=== PATIENT | female | born 1965 | race Caucasian/White ===

== ENCOUNTER → 2020-04-13 13:33 | Outpatient (CLI) | payer OTHER, SELFPAY ==
--- NOTE | ~2020-04-13 | MM_ITS ---
EXAMINATION: MM screening [facility] BI w akanksha HISTORY: Screening TECHNIQUE: Craniocaudal and mediolateral oblique 3-D tomosynthesis images were obtained and synthetic 2-D images were generated. CAD analysis was submitted and interpreted. COMPARISON: Comparison to multiple prior studies sequentially, with oldest reviewed study dated 11/04. BREAST PARENCHYMAL COMPOSITION: The breasts are heterogeneously dense, which may obscure small masses . FINDINGS: Benign-appearing bilateral breast masses and architectural distortion within the right reyes st are stable. There is no evidence of suspicious mass, calcification, or architectural distortion to suggest malignancy in either breast. There has been no suspicious interval change. IMPRESSION: 1. No mammographic evidence of malignancy. 2. Recommend routine screening mammography in one year. BI-RADS Category 2: Benign finding(s).. Reviewed, dictated and finalized at location A. D [employer]
== END ==
PROVIDERS: PCP Family Medicine; Visit Provider Family Medicine
DX: Z12.31 Encounter for screening mammogram for malignant neoplasm of breast (principal)
CPT/HCPCS: 77063; 77067

== ENCOUNTER 2023-06-22 11:38 | Outpatient (CLI) | payer BC, SELFPAY ==
--- NOTE | ~2023-06-22 | XR_ITS ---
EXAMINATION: [id number] DATE: 06/22/2023 12:16 INDICATION: Left foot stress fracture with pain in the region of the second and third metatarsals TECHNIQUE: Weightbearing dorsal plantar, two oblique and lateral views of the left foot were obtaine d. COMPARISON: None. FINDINGS: Mild pes planus with flattening of the longitudinal arch. Alignment is otherwise normal. No fractures or periosteal reaction to suggest a lower grade stress injury. Mild polyarticular osteoarthritis at the first metatarsophalangeal and a few tarsometatarsal and interphalangeal joints. No erosions to monson ggest inflammatory arthritis. Small Achilles calcaneal spur. IMPRESSION: 1. 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 No acute osseous abnormality. Reviewed, dictated and finalized at location A. IMPRESSION: 1. 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 No acute oss eous abnormality.
== END 2023-06-22 11:39 ==
LOC: MICIMG 11:40
PROVIDERS: PCP Podiatrist Foot & Ankle Surgery; Visit Provider Podiatrist Foot & Ankle Surgery
DX: S92.302A Fracture of unspecified metatarsal bone(s), left foot, initial encounter for closed fracture (principal); X58.XXXA Exposure to other specified factors, initial encounter; M19.072 Primary osteoarthritis, left ankle and foot
CPT/HCPCS: 73630

== ENCOUNTER 2023-08-01 13:36 | Outpatient (CLI) | payer BC, SELFPAY ==
--- NOTE | ~2023-08-01 | MR_ITS ---
EXAMINATION: MR foot LT wo/w con DATE: 08/01/2023 14:25 INDICATION: Neuroma at the left foot presenting with pain and lump at the left forefoot TECHNIQUE: Magnetic resonance imaging (MRI) of the left fore/mid foot was performed without and with 20 mL Multihance intravenous contrast. Sequences included axial, sagittal and coronal T1-weighted FSE , axial T2-weighted FS FSE, axial T1-weighted FS FSE, sagittal fluid sensitive FSE STIR, coronal PD-w eighted FS FSE and postcontrast axial, sagittal and coronal T1-weighted FS FSE. COMPARISON: Left foot radiographs dated 06/22/2023 FINDINGS: There is mild medial deviation of the second toe relative to the axis of the remaining toes. Bone ali gnment is otherwise normal. There is normal marrow signal throughout with no fracture or pathologic m arrow replacing process. Mild polyarticular osteoarthritis at multiple tarsal metatarsal, metatarsoph alangeal and interphalangeal joints. There is a tear along the ulnar side of the plantar plate at the base of the second proximal phalanx. There is thickening and small amount of ossification of lateral sided collateral ligament complex of the second metatarsophalangeal joint consistent with chronic te ar and likely accounting for the medial deviation of the second toe. The Lisfranc ligament complex an d remaining collateral ligament complexes at the metatarsophalangeal and interphalangeal joints are n ormal. There is mild edema of the intrinsic musculature between the second and third metatarsals. No abnormally enhancing masses. Specifically no Azevedo's neuroma identified. Physiologic amount fluid in the joint space with no bursitis or tenosynovitis. The visual is portions of the flexor and extensor tendons are normal. IMPRESSION: 1. 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 Reviewed, dictated and finalized at location A. IMPRESSION: 1. 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
== END 2023-08-01 13:37 ==
LOC: MICIMG 13:36
PROVIDERS: PCP Family Medicine; Visit Provider Podiatrist Foot & Ankle Surgery
DX: D36.13 Benign neoplasm of peripheral nerves and autonomic nervous system of lower limb, including hip (principal); R93.6 Abnormal findings on diagnostic imaging of limbs
CPT/HCPCS: 73720; A9577

== ENCOUNTER 2023-08-21 13:58 | Outpatient (CLI) | payer BC, SELFPAY ==
--- NOTE | ~2023-08-21 | MM_ITS ---
EXAMINATION: MM screening [facility] BI w akanksha HISTORY: Screening TECHNIQUE: Craniocaudal and mediolateral oblique 3-D tomosynthesis images were obtained and synthetic 2-D images were generated. CAD analysis was submitted and interpreted. COMPARISON: Comparison to multiple prior studies sequentially, with oldest reviewed study dated 11/04. BREAST PARENCHYMAL COMPOSITION: Not dense: There are scattered areas of fibroglandular density. FINDINGS: Stable architectural distortion in the upper inner quadrant of the right breast, consistent with previous lumpectomy. There is no evidence of suspicious mass, calcification, or architectural d istortion to suggest malignancy in either breast. There has been no suspicious interval change. IMPRESSION: 1. No mammographic evidence of malignancy. 2. Recommend routine screening mammography in one year. BI-RADS Category 2: Benign finding(s). Reviewed, dictated and finalized at location B.
== END 2023-08-21 13:59 ==
LOC: MICIMG 13:59
PROVIDERS: PCP Family Medicine; Visit Provider Family Medicine
DX: Z12.31 Encounter for screening mammogram for malignant neoplasm of breast (principal)
CPT/HCPCS: 77063; 77067

== ENCOUNTER 2023-09-07 13:35 | Outpatient (CLI) | payer BC, SELFPAY ==
--- NOTE | 2023-09-07 | ECG_ITS ---
Test Date: 2023-09-07 13:58:34 Measurements Intervals [place] Rate: 99 P: 38 ME: 144 QRS: -20 QRSD: 91 T: 30 QT: 355 QTc: 456 Interpretive Statements SINUS RHYTHM LOW QRS VOLTAGE IN PRECORDIAL LEADS POSSIBLE ANTERIOR MYOCARDIAL INFARCTION , OF INDETERMINATE AGE INFERIOR MYOCARDIAL INFARCTION , PROBABLY OLD BORDERLINE ST-T WAVE ABNORMALITY- ANTEROLAT/HIGH LAT LEADS ABNORMAL ECG No previous ECG available for comparison Electronically Signed On 09-07-2023 14:07:08 CDT by Michael Herbert D.O.
== END 2023-09-07 13:36 | disposition home or self-care (01) ==
PROVIDERS: PCP Family Medicine
DX: Z01.818 Encounter for other preprocedural examination (principal); R94.31 Abnormal electrocardiogram [ECG] [EKG]
CPT/HCPCS: 93005